=== PATIENT | female | born 1970 | race American Indian/Alaskan Native ===

== ENCOUNTER 2017-01-07 11:37 | Outpatient (CLI) | payer MEDICARE ==
--- NOTE | 2017-01-07 16:06 | Mammography Report ---
BILATERAL DIGITAL SCREENING MAMMOGRAM with CAD: 01/07/17 11:37:00 CLINICAL: Routine screening. COMPARISON:11/14/14 FINDINGS: The breasts are almost entirely fatty. No mass, architectural distortion or suspicious calcifications. IMPRESSION: No mammographic evidence of malignancy. BI-RADS CATEGORY: 1 - - Negative RECOMMENDATION: Routine mammographic screening in one year. COMMENT: Patient follow-up letters are generated by our [employer] application.
== END 2017-01-07 11:38 | disposition home or self-care (01) ==
LOC: SPVWC 11:37
PROVIDERS: ATTEND Nurse Practitioner
DX: Z12.31 Encounter for screening mammogram for malignant neoplasm of breast (principal)
CPT/HCPCS: 77067; G0202

== ENCOUNTER 2017-02-22 01:58 | Emergency (ER) | payer MEDICARE ==
[2017-02-22 03:05] LABS: Basophils % (Auto) 0.4 % (0.0-1.8); Eosinophils % (Auto) 0.5 % (0.0-4.3); Hematocrit 42.9 % (30.3-42.9); Hemoglobin 14.4 gm/dl (10.1-14.3); Mean Corpuscular HGB Conc 34 % (30-34); Mean Corpuscular Hemoglobin 30 pg (28-32); Mean Corpuscular Volume 90 fl (79-97); Red Blood Count 4.78 M/mm3 (3.65-5.03); Red Cell Distribution Width 12.9 % (13.2-15.2); White Blood Count 10.1 K/mm3 (4.5-11.0)
[2017-02-22] MEDS ORDERED: ZOFRAN IV ONE ×2 (03:05→08:40)
[2017-02-22 03:23] LABS: Calcium 10.2 mg/dL (8.4-10.2); Potassium 3.9 mmol/L (3.6-5.0)
[2017-02-22] MEDS ORDERED: NACL 0.9% 500 ML 500 ML ONE (03:34)
[2017-02-22] MEDS ORDERED: NACL 0.9% 500 ML 500 ML IV ONE (03:41)
[2017-02-22 04:12] LABS: Platelet Count 269 K/mm3 (140-440)
[2017-02-22] MEDS ORDERED: NACL 0.9% 1000 ML 1,000 ML IV ONE (08:28)
[2017-02-22] MEDS ORDERED: MORPHINE IV ONE (08:39)
--- NOTE | 2017-02-22 08:40 | Emergency Department Report ---
HPI - General Chief Complaint: Weakness Time Seen by Provider: 02/22/17 07:12 - HPI HPI: The patient's 46-year-old female who presents for evaluation of abdominal pain. The patient reports lower abdominal pain since 11 PM last night, approximately 8 hours prior to my evaluation, 8/10 in severity, cramping in quality, exacerbated with defecation and retching. She says that she has also experienced nausea and multiple episodes of nonbilious, nonbloody emesis, and loose watery stools. The patient denies headache, chest pain, dyspnea, hematemesis, blood in the stools, black tarry stools, recent antibiotic use, travel outside the country, exposure to raw or uncooked seafood, reheated foods , untreated water, or unpasteurized dairy. ED Past Medical Hx - Past Medical History Hx Hypertension: Yes Hx Diabetes: Yes Hx Asthma: Yes Additional medical history: Morbid Obesity, Glaucoma - Surgical History Hx Cholecystectomy: Yes Additional Surgical History: C-sections X2 - Social History Smoking Status: Never Smoker Substance Use Type: None - Medications Home Medications: Home Medications Medication Instructions Recorded Confirmed Last Taken Type Acetaminophen/Codeine [Tylenol #3] 1 tab PO Q6H PRN #14 tab 02/22/17 Unknown Rx Diclofenac EC mg PO BID 02/22/17 Unknown History Lisinopril/Hydrochlorothiazide 1 tab PO DAILY 02/22/17 02/22/17 Unknown History Lumigan 0.01% 1 drop AU HS 02/22/17 02/22/17 Unknown History Ondansetron [Zofran TAB] 4 mg PO Q8HR PRN #20 tablet 02/22/17 Unknown Rx ED Review of Systems ROS: Stated complaint: WEAKNESS Other details as noted in HPI Constitutional: denies: fever ENT: denies: throat or neck pain Respiratory: denies: cough, shortness of breath Cardiovascular: denies: chest pain Endocrine: denies unexplained weight loss or gain Gastrointestinal: reports abdominal pain, nausea, vomiting, diarrhea Genitourinary: denies: dysuria Musculoskeletal: denies: leg swelling Skin: denies: rash Neurological: denies: headache Hematological/Lymphatic: denies: easy bleeding or easy bruising Psych: denies sadness or hopelessness Physical Exam - Physical Exam Vital Signs: Vital Signs 02/22/17 02/22/17 02/22/17 02:27 03:38 03:45 Temperature 98 F Pulse Rate 103 H 80 88 Respiratory 16 21 16 Rate Blood Pressure 92/31 Blood Pressure 92/31 [Right] O2 Sat by Pulse 96 97 94 Oximetry 02/22/17 02/22/17 02/22/17 04:00 04:15 04:31 Temperature Pulse Rate 92 H 81 86 Respiratory 16 16 17 Rate Blood Pressure 94/58 101/57 120/59 Blood Pressure [Right] O2 Sat by Pulse 92 100 93 Oximetry 02/22/17 02/22/17 02/22/17 04:45 05:01 05:15 Temperature Pulse Rate 73 77 97 H Respiratory 16 17 19 Rate Blood Pressure 102/53 117/39 127/40 Blood Pressure [Right] O2 Sat by Pulse 90 99 98 Oximetry 02/22/17 02/22/17 02/22/17 05:30 05:45 06:00 Temperature Pulse Rate 87 84 76 Respiratory 18 15 15 Rate Blood Pressure 114/53 122/59 108/66 Blood Pressure [Right] O2 Sat by Pulse 99 97 97 Oximetry 02/22/17 02/22/17 02/22/17 06:15 06:30 06:45 Temperature Pulse Rate 81 78 94 H Respiratory 16 15 18 Rate Blood Pressure 114/57 110/50 112/56 Blood Pressure [Right] O2 Sat by Pulse 96 94 98 Oximetry 02/22/17 02/22/17 07:00 07:15 Temperature Pulse Rate 76 88 Respiratory 16 16 Rate Blood Pressure 107/51 96/51 Blood Pressure [Right] O2 Sat by Pulse 92 95 Oximetry Physical Exam: General: well-nourished, well-developed, no acute distress Head: Normocephalic, atraumatic Eyes: normal sclera ENT: Mucous membranes are pale and dry Neck: No neck stiffness, no cervical adenopathy Respiratory: Breath sounds equal bilaterally, no wheezing, rales, or rhonchi Cardio: S1 and S2 present, no murmurs, rubs, gallops, capillary refill is delayed Abdomen: Normoactive bowel sounds, soft abdomen, left lower quadrant and periumbilical tenderness to palpation present, no rigidity, no guarding or rebound tenderness Musc: No pitting edema Skin: No rash Neuro: no facial drooping, normal speech Psych: Normal affect ED Course Vital Signs 02/22/17 02/22/17 02/22/17 02:27 03:38 03:45 Temperature 98 F Pulse Rate 103 H 80 88 Respiratory 16 21 16 Rate Blood Pressure 92/31 Blood Pressure 92/31 [Right] O2 Sat by Pulse 96 97 94 Oximetry 02/22/17 02/22/17 02/22/17 04:00 04:15 04:31 Temperature Pulse Rate 92 H 81 86 Respiratory 16 16 17 Rate Blood Pressure 94/58 101/57 120/59 Blood Pressure [Right] O2 Sat by Pulse 92 100 93 Oximetry 02/22/17 02/22/17 02/22/17 04:45 05:01 05:15 Temperature Pulse Rate 73 77 97 H Respiratory 16 17 19 Rate Blood Pressure 102/53 117/39 127/40 Blood Pressure [Right] O2 Sat by Pulse 90 99 98 Oximetry 02/22/17 02/22/17 02/22/17 05:30 05:45 06:00 Temperature Pulse Rate 87 84 76 Respiratory 18 15 15 Rate Blood Pressure 114/53 122/59 108/66 Blood Pressure [Right] O2 Sat by Pulse 99 97 97 Oximetry 02/22/17 02/22/17 02/22/17 06:15 06:30 06:45 Temperature Pulse Rate 81 78 94 H Respiratory 16 15 18 Rate Blood Pressure 114/57 110/50 112/56 Blood Pressure [Right] O2 Sat by Pulse 96 94 98 Oximetry 02/22/17 02/22/17 07:00 07:15 Temperature Pulse Rate 76 88 Respiratory 16 16 Rate Blood Pressure 107/51 96/51 Blood Pressure [Right] O2 Sat by Pulse 92 95 Oximetry ED Medical Decision Making - Lab Data Result diagrams: 02/22/17 02:53 02/22/17 02:53 - Medical Decision Making The patient was seen and examined by myself. The patient is placed on a cardiac rehabilitation specialist and continuous pulse ox. On initial evaluation, the patient was found to be in no distress. Evaluation orders are placed. IV access is established and the patient is given 1 L normal saline fluid bolus and Zofran for nausea, and IV analgesic for pain. Lab results were non-concerning including WBC, hemoglobin, hematocrit, electrolytes, renal function, neg preg test, and urinalysis. The patient was reevaluated and reported that their symptoms were markedly improved. The patient is stable for discharge with outpatient follow-up. The patient is given follow-up and return instructions. The patient expressed understanding and agreed with the plan. The patient is discharged in stable condition. Critical care attestation.: If time is entered above; I have spent that time in minutes in the direct care of this critically ill patient, excluding procedure time. ED Disposition Clinical Impression: Acute left lower quadrant pain, Dehydration, mild, Nausea and vomiting in adult Diarrhea Qualifiers: Diarrhea type: presumed infectious Qualified Code(s): A09 - Infectious gastroenteritis and colitis, unspecified Disposition: TO HOME OR SELFCARE Is pt being admited?: No Does the pt Need Aspirin: No Condition: Stable Instructions: Dehydration (ED), Gastroenteritis (ED), Acute Diarrhea (ED), Acute Abdominal Pain (ED), Food Poisoning (ED) Prescriptions: Acetaminophen/Codeine [Tylenol #3] 1 tab PO Q6H PRN #14 tab PRN Reason: Pain Ondansetron [Zofran TAB] 4 mg PO Q8HR PRN #20 tablet PRN Reason: Nausea Referrals: PRIMARY CARE, [Primary Care Provider] - 3-5 Days Time of Disposition: 08:40
[2017-02-22 10:26] LABS: Bacteria,Urine 1+ /HPF (Negative); Bilirubin,Urine NEG (Negative); Blood,Urine NEG (Negative); Ketones,Urine NEG (Negative); Leukocyte Esterase,Urine TR (Negative); Mucus,Urine 2+ /HPF; Nitrite,Urine NEG (Negative)
[2017-02-22 10:37] VITALS: BP 115/47
== END 2017-02-22 11:12 | disposition home or self-care (01) ==
LOC: ED 01:58
DX: A09 Infectious gastroenteritis and colitis, unspecified (principal); E86.0 Dehydration; R10.32 Left lower quadrant pain; R11.2 Nausea with vomiting, unspecified; I10 Essential (primary) hypertension; E11.9 Type 2 diabetes mellitus without complications; J45.909 Unspecified asthma, uncomplicated
CPT/HCPCS: 36415; 80048; 81001; 82962; 84703; 85025; 96361; 96374; 96375; 96376; 99284; J2270; J2405; J7030; J7040

== ENCOUNTER 2017-03-28 14:20 | Outpatient (CLI) | payer MEDICARE ==
--- NOTE | 2017-03-28 15:48 | XRay Report ---
Lumbar spine: Back pain. AP and lateral views are obtained. There is a grade 1 anterior L4 subluxation relative to L5. No spondylolyses is identified. Minimal anterior wedging is noted at L1 and L2 levels. Minimal spurring at all levels. No significant interspace narrowing. The bones are well-mineralized. Impression: L4 spondylolisthesis.
== END 2017-03-28 14:21 | disposition home or self-care (01) ==
LOC: SPVIMAG 14:20
PROVIDERS: ATTEND Internal Medicine
DX: M43.16 Spondylolisthesis, lumbar region (principal)
CPT/HCPCS: 72100